=== PATIENT | female | born 1990 | race African-American/Black ===

== ENCOUNTER 2016-07-10 19:37 | Emergency (ER) | payer OTHER ==
[2016-07-10 19:42] VITALS: BMI 27.3
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
[2016-07-10] MEDS ORDERED: ELECTROLYTE-148 SOLN 500 ML IV ONE ×2 (19:50→20:50)
[2016-07-10 21:08] LABS: URINE APPEARANCE SLCLOUDY; URINE BILIRUBIN NEGATIVE (NEGATIVE); URINE BLOOD NEGATIVE (NEGATIVE); URINE COLOR LTYELLOW; URINE GLUCOSE (UA) NEGATIVE (NEGATIVE); URINE KETONE NEGATIVE (NEGATIVE); URINE NITRITE NEGATIVE (NEGATIVE); URINE PROTEIN NEGATIVE (NEGATIVE); URINE UROBILINOGEN NEGATIVE E.U./dl (0.2-1.0)
[2016-07-10 21:09] LABS: URINE LEUK ESTERASE 2+ (NEGATIVE)
[2016-07-10 21:15] LABS: URINE BACTERIA MODERATE /hpf (NONE SEEN); URINE HYALINE CAST 1 /lpf; URINE RBC 1 /hpf (0-3); URINE WBC 4 /hpf (3-5); YEAST RARE
[2016-07-10 21:27] VITALS: BP 98/63; PULSE 110; TEMP 98.5
== END 2016-07-11 00:25 | disposition home or self-care (01) ==
LOC: JER 19:37
DX: O26.893 Other specified pregnancy related conditions, third trimester (principal); R10.30 Lower abdominal pain, unspecified; Z3A.30 30 weeks gestation of pregnancy
CPT/HCPCS: 59025; 76815-TC; 76817-TC; 81003; 81015; 99281-25

== ENCOUNTER 2016-08-16 01:18 | Emergency (ER) | payer OTHER ==
[2016-08-16 01:54] VITALS: BP 112/64; PULSE 102; TEMP 98.2; BMI 27.3
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
== END 2016-08-16 03:47 | disposition home or self-care (01) ==
LOC: JER 01:18
DX: S61.451A Open bite of right hand, initial encounter (principal); Y04.1XXA Assault by human bite, initial encounter; Y93.89 Activity, other specified; Y92.038 Other place in apartment as the place of occurrence of the external cause; Y07.499 Other family member, perpetrator of maltreatment and neglect
CPT/HCPCS: 99282-25

== ENCOUNTER 2016-08-26 20:40 | Inpatient (IN) | payer OTHER ==
[2016-08-26] MEDS: ELECTROLYTE-148 SOLN 1,000 ML IV SCH (21:15)
--- NOTE | 2016-08-26 21:16 | HP ---
Admitting History and Physical - Admission Chief Complaint: srom History of Present Illness: 26 /o p3 comes with srom today, efrain q 2 mins History Source: Patient Limitations to Obtaining History: No Limitations - Past Medical History CARE CLINICIAN: No: Alzheimer's, CVA, Dementia, Migraine, Multiple Sclerosis, Peripheral Neuropathy, Parkinson's, Seizure, Syncope, TIA, Vertigo, Other Pulmonary: No: Asthma, Bronchitis, Cancer, COPD, O2 Dependent, Pneumonia, Previously Intubated, Pulmonary Embolus, Pulmonary Fibrosis, Sleep Apnea, Other Gastrointestinal: No: Ascites, Cancer, Constipation, Crohn's Disease, Diverticulitis, Diverticulosis, Esophageal Varices, Gastritis, GERD, GI Bleed, Hemorrhoids, Hiatal Hernia, Inflamatory Bowel Disease, Irritable Bowel Disease, Pancreatitis, Peptic Ulcer Disease, Ulcerative Colitis, Other Hepatobiliary: No: Cirrhosis, Cholelithiasis, Cholecystitis, Choledocholithiasis , Hepatitis A, Hepatitis B, Hepatitis C, Other Renal/: No: Renal Failure, Renal Inusuff, BPH, Cancer, Hematuria, Hemodialysis , Neurogenic Bladder, Renal Calculi, UTI, Other Reproductive: No: Ectopic , Endometriosis, Fibroids, PID, Polycystic Ovary Syndrome, Postmenopausal, Other ...LMP: 03/09/14 Heme/Onc: Yes: Anemia Infectious Disease: No: AIDS, C-Diff, Herpes Zoster, HIV, MRSA, STD's, Tuberculosis, VREF, Other Psych: No: Addictions, Anxiety, Bipolar, Depression, Panic, Psychosis, Schizophrenia, Other - Smoking History Smoking history: Never smoked Have you smoked in the past 12 months: No - Alcohol/Substance Use Hx Alcohol Use: No History of Substance Use: denies: None, Cocaine, Heroin, Marijuana, Prescription , Tranquilizers - Social History Usual Living Arrangement: No: Alone, With Spouse, With Parent, With Significant Other, With Child, Assisted Living, Care Home, Other Home Medications - Allergies Allergies/Adverse Reactions: Allergies Allergy/AdvReac Type Severity Reaction Status Date / Time No Known Allergies Allergy Verified 08/16/16 01:51 - Home Medications Home Medications: Ambulatory Orders Albuterol Sulfate Inhaler - [Ventolin Hfa Inhaler -] 1 - 2 inh PO QID 05/30/16 Ferrous Sulfate [Feosol] 325 mg PO DAILY 07/10/16 Nitrofurantoin Monohyd/M-Cryst [Macrobid -] 100 mg PO BID #14 capsule 07/10/16 Vitamins (Sjr) - 1 tab PO DAILY 07/10/16 Amoxicillin - [Amoxicillin 250mg Capsule -] 250 mg PO TID #21 capsule 08/16/16 Review of Systems - Review of Systems Constitutional: reports: No Symptoms Eyes: reports: No Symptoms HENT: reports: No Symptoms Neck: reports: No Symptoms Cardiovascular: reports: No Symptoms Respiratory: reports: No Symptoms Gastrointestinal: reports: No Symptoms Genitourinary: reports: No Symptoms Breasts: reports: No Symptoms Reported Musculoskeletal: reports: No Symptoms Integumentary: reports: No Symptoms Neurological: reports: No Symptoms Assessment/Plan as above continue care admit labs
--- NOTE | 2016-08-26 21:21 | PN ---
Progress Note (short form) - Note Progress Note: 2-3 cm/srom clear/ -2
[2016-08-26 22:14] LABS: BASOPHIL 0.8 % (0-2.0); EOSINOPHIL 0.9 % (0-4.5); MCHC 32.9 g/dl (32.0-36.0); MEAN CELL VOLUME 82.1 fl (80-96); MEAN PLT VOLUME 9.8 fl (7.5-11.1); NEUTROPHILS 57.7 % (42.8-82.8); PLATELET COUNT 120 K/MM3 (134-434); RDW 14.8 % (11.6-15.6); WHITE BLOOD COUNT 6.5 K/mm3 (4.0-10.0)
[2016-08-26 22:38] LABS: INR 0.99 (0.82-1.09); PROTHROMBIN TIME (PATIENT) 10.9 SEC (9.98-11.88)
[2016-08-26 22:40] LABS: ACTIVATED PTT 24.4 SECONDS (26.9-34.4)
[2016-08-26 22:41] LABS: CALCIUM 8.2 mg/dL (8.5-10.1); CREATININE 0.5 mg/dL (0.55-1.02)
[2016-08-26 22:52] VITALS: BMI 28.3
[2016-08-26 22:52] LABS: COCKROFT - GAULT 173.927
[2016-08-26] MEDS ORDERED: POTASSIUM CHLORIDE 20 MEQ PREMIX IVPB 100 ML IVPB ONE (22:56)
[2016-08-26] MEDS ORDERED: OXYTOCIN 15 UNITS/ LR 250 ML 250 ML IVPB SCH (23:00)
--- NOTE | 2016-08-26 23:08 | PN ---
Progress Note (short form) - Note Progress Note: doing well, contraction, exam 3 cm..will start pitocin pain meds prn
[2016-08-27] MEDS ORDERED: WITCH HAZEL 50% (TUCKS) 40 PAD/JAR PAD TP PRN (03:24)
[2016-08-27] MEDS ORDERED: BENZOCAINE 20% 57 GM BOTTLE TP PRN (03:24)
[2016-08-27] MEDS ORDERED: METHYLERGONOVINE MALEATE 0.2 MG/1 ML AMP IM PRN (03:24)
[2016-08-27] MEDS ORDERED: BENZOCAINE 28 GM HEMORRHOIDAL OINTMENT TP PRN (03:24)
[2016-08-27] MEDS ORDERED: BISACODYL 10 MG SUPP.RECT RC PRN (03:24)
--- NOTE | 2016-08-27 03:24 | PN ---
Delivery - Delivery Vaginal Delivery: No Problems Episiotomy/Laceration: None EBL (cc): 300 Delivery, Single - Feeding Plan Initial Plan: Elected not to breastfeed exclusively throughout hospitalization
[2016-08-27] MEDS: OXYTOCIN 20 UNITS in 0.9% NS 1,000 ML IV SCH ×2 (03:40→09:00)
[2016-08-27] MEDS ORDERED: BUTORPHANOL TARTRATE 1 MG/ML VIAL IVPUSH ONE (05:53)
[2016-08-27] MEDS: ACETAMINOPHEN 325 MG TABLET (FP) PO PRN ×2 (08:16→21:19)
[2016-08-27] MEDS: IBUPROFEN 600 MG TABLET (FP) PO PRN ×2 (08:17→21:18)
[2016-08-27 09:49] LABS: ALBUMIN 2.3 g/dl (3.4-5.0); ALK PHOS 207 U/L (45-117); ANION GAP 9 (8-16); BILIRUBIN,TOTAL 0.5 mg/dL (0.2-1.0); CALCIUM 8.4 mg/dL (8.5-10.1); CO2 29 mmol/L (21-32); COCKROFT - GAULT 144.9335; CREATININE 0.6 mg/dL (0.55-1.02); GLUCOSE,RANDOM 121 mg/dL (74-106); SGOT/AST 27 U/L (15-37); SGPT/ALT 13 U/L (12-78); TOT PROT 5.6 g/dl (6.4-8.2)
[2016-08-27] MEDS ORDERED: POTASSIUM CHLORIDE TABS 20 MEQ TABLET.ER (FP) PO ONE (11:30)
[2016-08-27] MEDS: ELECTROLYTE-148 SOLN 1,000 ML IV SCH (21:21)
[2016-08-28 08:39] LABS: BASOPHIL 0.8 % (0-2.0); EOSINOPHIL 1.3 % (0-4.5); MCH 27.3 pg (25.7-33.7); MCHC 33.6 g/dl (32.0-36.0); MEAN CELL VOLUME 81.4 fl (80-96); MEAN PLT VOLUME 8.8 fl (7.5-11.1); NEUTROPHILS 56.6 % (42.8-82.8); PLATELET COUNT 106 K/MM3 (134-434); WHITE BLOOD COUNT 8.6 K/mm3 (4.0-10.0)
[2016-08-28 09:10] LABS: CALCIUM 8.6 mg/dL (8.5-10.1); COCKROFT - GAULT 144.9335; CREATININE 0.6 mg/dL (0.55-1.02)
[2016-08-28] MEDS ORDERED: POTASSIUM CHLORIDE TABS 20 MEQ TABLET.ER (FP) PO ONE (11:00)
--- NOTE | 2016-08-28 15:06 | PN ---
Post Progress Note Post Day: 1 Type of Delivery: Vital Signs: Vital Signs Temperature 98.6 F 08/28/16 07:15 Pulse Rate 66 08/28/16 07:15 Respiratory Rate 20 08/28/16 07:15 Blood Pressure 117/74 08/28/16 07:15 O2 Sat by Pulse Oximetry (%) Breast Exam: Yes: Soft Uterus: Yes: Fundus Firm Abdomen/GI: Yes: Abdomen soft Lochia: Yes: Rubra Lochia, amount: Small Extremities: Yes: Calves non-tender Perineum: Yes: Intact Activity: Ambulating - Labs Labs: CBC WBC 8.6 K/mm3 (4.0-10.0) D 08/28/16 08:00 RBC 3.59 M/mm3 (3.60-5.2) L 08/28/16 08:00 Hgb 9.8 GM/dL (10.7-15.3) L 08/28/16 08:00 Hct 29.2 % (32.4-45.2) L 08/28/16 08:00 MCV 81.4 fl (80-96) 08/28/16 08:00 MCHC 33.6 g/dl (32.0-36.0) 08/28/16 08:00 RDW 15.0 % (11.6-15.6) 08/28/16 08:00 Plt Count 106 K/MM3 (134-434) L 08/28/16 08:00 MPV 8.8 fl (7.5-11.1) D 08/28/16 08:00 Neutrophils % 56.6 % (42.8-82.8) 08/28/16 08:00 Lymphocytes % 32.1 % (8-40) 08/28/16 08:00 Monocytes % 9.2 % (3.8-10.2) 08/28/16 08:00 Eosinophils % 1.3 % (0-4.5) 08/28/16 08:00 Basophils % 0.8 % (0-2.0) 08/28/16 08:00 Assessment/Plan as above labs k dur replacement
[2016-08-28] MEDS ORDERED: SENNOSIDES/DOCUSATE COMBO (SENNA PLUS) TABLET (UD) PO PRN (22:00)
--- NOTE | 2016-08-29 04:28 | PN ---
Post Progress Note Post Day: 2 Type of Delivery: Vital Signs: Vital Signs Temperature 98.7 F 08/28/16 21:44 Pulse Rate 79 08/28/16 21:44 Respiratory Rate 20 08/28/16 21:44 Blood Pressure 122/79 08/28/16 21:44 O2 Sat by Pulse Oximetry (%) Breast Exam: Yes: Soft Uterus: Yes: Fundus Firm Abdomen/GI: Yes: Abdomen soft Lochia: Yes: Rubra Lochia, amount: Small Perineum: Yes: Intact Activity: Ambulating - Labs Labs: CBC WBC 8.6 K/mm3 (4.0-10.0) D 08/28/16 08:00 RBC 3.59 M/mm3 (3.60-5.2) L 08/28/16 08:00 Hgb 9.8 GM/dL (10.7-15.3) L 08/28/16 08:00 Hct 29.2 % (32.4-45.2) L 08/28/16 08:00 MCV 81.4 fl (80-96) 08/28/16 08:00 MCHC 33.6 g/dl (32.0-36.0) 08/28/16 08:00 RDW 15.0 % (11.6-15.6) 08/28/16 08:00 Plt Count 106 K/MM3 (134-434) L 08/28/16 08:00 MPV 8.8 fl (7.5-11.1) D 08/28/16 08:00 Neutrophils % 56.6 % (42.8-82.8) 08/28/16 08:00 Lymphocytes % 32.1 % (8-40) 08/28/16 08:00 Monocytes % 9.2 % (3.8-10.2) 08/28/16 08:00 Eosinophils % 1.3 % (0-4.5) 08/28/16 08:00 Basophils % 0.8 % (0-2.0) 08/28/16 08:00 Assessment/Plan oob dc home
[2016-08-29 12:10] LABS: ALBUMIN 2.1 g/dl (3.4-5.0); ALK PHOS 152 U/L (45-117); ANION GAP 7 (8-16); BILIRUBIN,TOTAL 0.3 mg/dL (0.2-1.0); CALCIUM 8.4 mg/dL (8.5-10.1); CO2 30 mmol/L (21-32); COCKROFT - GAULT 144.9335; CREATININE 0.6 mg/dL (0.55-1.02); GLUCOSE,RANDOM 76 mg/dL (74-106); SGPT/ALT 16 U/L (12-78); TOT PROT 5.2 g/dl (6.4-8.2)
[2016-08-29 12:15] LABS: SGOT/AST 36 U/L (15-37)
[2016-08-29] MEDS: IBUPROFEN 600 MG TABLET (FP) PO PRN (12:48)
[2016-08-29] MEDS: ACETAMINOPHEN 325 MG TABLET (FP) PO PRN (12:49)
[2016-08-29 17:43] VITALS: BP 106/71; PULSE 85; TEMP 98.8
== END 2016-08-29 17:00 | disposition home or self-care (01) | DRG 560 ==
LOC: JLDR 20:40 → J3W 08-27 05:53
PROVIDERS: ADMIT Obstetrics & Gynecology; ATTEND Obstetrics & Gynecology
PROC: 10E0XZZ Delivery of Products of Conception, External Approach (ICD-10-PCS; principal; 2016-08-27)
DX: O99.02 Anemia complicating childbirth (principal); D64.9 Anemia, unspecified; Z3A.37 37 weeks gestation of pregnancy; Z37.0 Single live birth
CPT/HCPCS: 36415; 59409; 80048; 80053; 85025; 85610; 85730; 86593; 86850; 86900; 86901

== ENCOUNTER 2018-09-23 19:02 | Emergency (ER) | payer OTHER ==
[2018-09-23 19:11] VITALS: BP 127/93; PULSE 97; TEMP 98; BMI 28.3
[2018-09-23] MEDS ORDERED: IBUPROFEN 600 MG TABLET (FP) PO ONE ×2 (19:31→19:39)
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
== END 2018-09-23 20:03 | disposition home or self-care (01) ==
LOC: JERFT 19:02 → JER 19:02 → JERFT 20:03
DX: M79.632 Pain in left forearm (principal); V48.0XXA Car driver injured in noncollision transport accident in nontraffic accident, initial encounter; Y92.488 Other paved roadways as the place of occurrence of the external cause; Y93.89 Activity, other specified; Y99.8 Other external cause status
CPT/HCPCS: 73070-TC-LT-FY; 73090-TC-LT-FY; 99282-25

== ENCOUNTER 2019-10-29 21:58 | Emergency (ER) | payer OTHER ==
--- NOTE | 2019-10-29 22:11 | PDOC ---
Rapid Medical Evaluation Chief Complaint: Ear Problem Time Seen by Provider: 10/29/19 22:09 Medical Evaluation: Allergies Allergy/AdvReac Type Severity Reaction Status Date / Time No Known Allergies Allergy Verified 09/23/18 19:08 10/29/19 22:09 29 year old female c/o right ear pain since last night. denies fever/ chills. PMHX; asthma Pe: patient alert ox3. A: right ear pain P: patient to the ER for further management of care Discharge Disposition - Diagnosis Right ear pain - Referrals - Patient Instructions - Post Discharge Activity
[2019-10-29 22:14] VITALS: BP 127/86; PULSE 88; TEMP 98.1; BMI 31.2
[2019-10-29] MEDS ORDERED: IBUPROFEN 600 MG TABLET (FP) PO ONE ×3 (22:17→22:23)
--- NOTE | 2019-10-29 22:21 | PDOC ---
History of Present Illness - General Chief Complaint: Ear Problem Stated Complaint: RT EAR INFECTION Time Seen by Provider: 10/29/19 22:09 History Source: Patient Exam Limitations: No Limitations - History of Present Illness Initial Comments: 10/29/19 22:19 HISTORY OF PRESENT ILLNESS: 29-year-old woman denies medical history presents emergency department for evaluation of right ear pain for 2 days. Patient reports a "clogged" sensation in her right ear which is worsened over 2 days. Patient is tried homeopathic remedies such as warm compresses to her ear with minimal relief. She denies any fevers or chills. She denies discharge or drainage from her ears. Patient reports using ear buds and has the volume on at high levels for extended periods of time. No recent travel or sick contacts. PAST MEDICAL HISTORY: Denies past medical history SURGICAL HISTORY: Denies ALLERGIES: No known drug allergies REVIEW OF SYSTEMS General/Constitutional: Denies fever or chills. Denies weakness, weight change. HEENT: See HPI Cardiovascular: Denies chest pain or shortness of breath. Respiratory: Denies cough, wheezing, or hemoptysis. Gastrointestinal: Denies nausea, vomiting, diarrhea or constipation. Denies rectal bleeding. Genitourinary: Denies dysuria, frequency, or change in urination. Musculoskeletal: Denies joint or muscle swelling or pain. Denies neck or back pain. Skin and breasts: Denies rash or easy bruising. Neurologic: Denies headache, vertigo, loss of consciousness, or loss of sensation. Psychiatric: Denies depression or anxiety. Endocrine: Denies increased thirst. Denies abnormal weight change. Hematologic/Lymphatic: Denies anemia, easy bleeding, or history of blood clots. Allergic/Immunologic: Denies hives or skin allergy. Denies latex allergy. PHYSICAL EXAM General Appearance: Well-appearing, appropriately dressed. No apparent distress, no intoxication. HEENT: EOMI, PERRLA, normal voice, TMs normal, pharynx normal. No conjunctival pallor. No mastoid tenderness present bilaterally. Right tragal tenderness upon light palpation. Increased pain with minimal traction on the pinna of the right ear. Right external auditory canal is erythematous with thick white discharge present. Neck: Supple. Trachea midline. No tenderness, rigidity, carotid bruit, stridor, lymphadenopathy, or thyromegaly. Neurologic: insecticide sprayer II-XII intact. Fully oriented, alert. Appropriate mood/affect. Motor strength 5/5. No appreciable EOM palsy, facial droop or sensory deficit. Past History - Medical History Allergies/Adverse Reactions: Allergies Allergy/AdvReac Type Severity Reaction Status Date / Time No Known Allergies Allergy Verified 09/23/18 19:08 Home Medications: Ambulatory Orders Ibuprofen 600 mg PO Q6H #30 tablet 09/23/18 Neomycin/Polymyxn/Hc [Cortisporin Otic Suspenstion -] 5 drop AD Q4HWA #1 bottle 10/29/19 Asthma: Yes Cancer: No Cardiac Disorders: No COPD: No Diabetes: Yes HTN: No Seizures: No Thyroid Disease: No - Reproductive History (#): 2 Para: 1 Cervical CA: No Dysfunctional Uterine Bleeding: No Ectopic : No Endometrial CA: No Polycystic Ovaries: No Therapeutic (s) & number: No Tubal Ligation: No - Psycho-Social/Smoking History Smoking History: Never smoked Have you smoked in the past 12 months: No - Substance Abuse Hx (Audit-C & DAST Scrn) How often the patient has a drink containing alcohol: Never Score: In Men: 4 or > Positive; In Women: 3 or > Positive: 0 Screen Result (Pos requires Nsg. Audit-10AR): Negative *Physical Exam - Vital Signs Last Vital Signs Temp Pulse Resp BP Pulse Ox 98.1 F 88 20 127/86 100 10/29/19 22:08 10/29/19 22:08 10/29/19 22:08 10/29/19 22:08 10/29/19 22:08 Medical Decision Making - Medical Decision Making 10/29/19 22:18 A/P: 29-year-old woman with atraumatic right ear pain for 2 days External auditory canal erythematous with thick white drainage present. Left external auditory canals unremarkable TMs within normal limits bilaterally As patient has an otitis externa will discharge the patient home with Cortisporin eardrops 5 drops to be taken every 4 hours while awake Motrin 600 mg orally now Discharge home Discharge - Discharge Information Problems reviewed: Yes Clinical Impression/Diagnosis: Otitis externa Qualifiers: Otitis externa type: unspecified type Chronicity: acute Laterality: right Qualified Code(s): H60.501 - Unspecified acute noninfective otitis externa, right ear Condition: Stable Disposition: HOME - Admission No - Additional Discharge Information Prescriptions: Neomycin/Polymyxn/Hc [Cortisporin Otic Suspenstion -] 5 drop AD Q4HWA #1 bottle - Follow up/Referral - Patient Discharge Instructions Additional Instructions: Rest, lots of fluids; water, teas, soups Hot wet soaks to ear/hot packs may help relieve some pain May use [id number] anesthetic drops to ears to help relieve some pain Avoid getting water in ear, may use alcohol drops to help dry up any water retained in ears Severe using earplugs when swimming to avoid any water retention Continue ibuprofen or Tylenol for pain and fevers Cortisporin otic solution 3-5 drops 3 times a day for 5 days followup with private physician / ENT doctor in 2-3 days Return to emergency department or see private physician immediately for swelling, redness, from ears, or fevers, - Post Discharge Activity
== END 2019-10-29 22:28 | disposition home or self-care (01) ==
LOC: JER 21:58
DX: H60.501 Unspecified acute noninfective otitis externa, right ear (principal)
CPT/HCPCS: 99283-25

== ENCOUNTER 2019-11-22 00:16 | Emergency (ER) | payer OTHER ==
[2019-11-22 00:49] VITALS: BP 119/88; PULSE 91; TEMP 98.5; BMI 31.8
--- NOTE | 2019-11-22 01:08 | PDOC ---
History of Present Illness - General Chief Complaint: Shortness of Breath Stated Complaint: SOB Time Seen by Provider: 11/22/19 00:44 - History of Present Illness Initial Comments: 11/22/19 01:02 Ms. Paz is a 29yo F with a history of asthma presenting with SOB and chest tightness, since resolved. She stated she was at home and began to feel SOB and chest tightness. She ran out of her albuterol inhaler, and she is missing the mask piece for her home nebulizer. She came to the hospital for treatment, but after getting from fresh She states she gets symptoms around once per month in the spring and summer, and that this feels like her asthma. Denies chest pain, cough, congestion, sick contacts, recent travel. PMH/PSH: as above Meds: albuterol Allergies: none ROS GENERAL/CONSTITUTIONAL: No fever or chills. No weakness. HEAD, EYES, EARS, NOSE AND THROAT: No change in vision. No ear pain or discharge. No sore throat. CARDIOVASCULAR: No chest pain or shortness of breath RESPIRATORY: No cough, wheezing, or hemoptysis. GASTROINTESTINAL: No nausea, vomiting, diarrhea or constipation. GENITOURINARY: No dysuria, frequency, or change in urination. MUSCULOSKELETAL: No joint or muscle swelling or pain. No neck or back pain. SKIN: No rash NEUROLOGIC: No headache, vertigo, loss of consciousness, or change in strength/sensation. ENDOCRINE: No increased thirst. No abnormal weight change HEMATOLOGIC/LYMPHATIC: No anemia, easy bleeding, or history of blood clots. ALLERGIC/IMMUNOLOGIC: No hives or skin allergy. PE GENERAL: Awake, alert, and fully oriented, in no acute distress HEAD: No signs of trauma, normocephalic, atraumatic EYES: PERRLA, EOMI, sclera anicteric, conjunctiva clear ENT: Auricles normal inspection, hearing grossly normal, nares patent, oropharynx clear without exudates. Moist mucosa NECK: Normal ROM, supple, no lymphadenopathy, JVD, or masses LUNGS: No distress, speaks full sentences, clear to auscultation bilaterally. No wheezing HEART: Regular rate and rhythm, normal S1 and S2, no murmurs, rubs or gallops, peripheral pulses normal and equal bilaterally. ABDOMEN: Soft, nontender, normoactive bowel sounds. No guarding, no rebound. No masses EXTREMITIES : Normal inspection, Normal range of motion, no edema. No clubbing or cyanosis. NEUROLOGICAL: Cranial nerves II through XII grossly intact. Normal speech, normal gait, no focal sensorimotor deficits SKIN: Warm, Dry, normal turgor, no rashes or lesions noted Vital Signs Temp Pulse Resp BP Pulse Ox 98.5 F 91 H 20 119/88 97 11/22/19 00:46 11/22/19 00:46 11/22/19 00:46 11/22/19 00:46 11/22/19 00:46 MDM: Ms. Paz is a 29yo F with a history of asthma presenting with SOB and chest tightness, since resolved. Vitals wnl, lungs CTAB, no wheezing on exam. She may have experienced asthma symptoms. Differential also includes panic attack. -DC home with albuterol inhaler prescription and PCP follow up 11/22/19 01:45 Ambulates without symptoms or desaturation. DC home as per plan above Past History - Medical History Allergies/Adverse Reactions: Allergies Allergy/AdvReac Type Severity Reaction Status Date / Time No Known Allergies Allergy Verified 11/22/19 00:45 Home Medications: Ambulatory Orders Ibuprofen 600 mg PO Q6H #30 tablet 09/23/18 Neomycin/Polymyxn/Hc [Cortisporin Otic Suspenstion -] 5 drop AD Q4HWA #1 bottle 10/29/19 Albuterol Sulfate Inhaler - [Ventolin HFA Inhaler -] 2 inh PO Q6H #1 inh 11/22/19 Asthma: Yes Cancer: No Cardiac Disorders: No COPD: No Diabetes: Yes HTN: No Seizures: No Thyroid Disease: No - Reproductive History Is Patient Now?: No (#): 2 Para: 1 Cervical CA: No Dysfunctional Uterine Bleeding: No Ectopic : No Endometrial CA: No Polycystic Ovaries: No Therapeutic (s) & number: No Tubal Ligation: No - Psycho-Social/Smoking History Smoking History: Never smoked Have you smoked in the past 12 months: No Information on smoking cessation initiated: No - Substance Abuse Hx (Audit-C & DAST Scrn) How often the patient has a drink containing alcohol: Never Score: In Men: 4 or > Positive; In Women: 3 or > Positive: 0 Screen Result (Pos requires Nsg. Audit-10AR): Negative In the last yr the pt used illegal drug/Rx for NonMed reason: No Score: Yes response is considered Positive: 0 Screen Result (Positive result requires Nsg. DAST-10): Negative *Physical Exam - Vital Signs Last Vital Signs Temp Pulse Resp BP Pulse Ox 98.5 F 91 H 20 119/88 97 11/22/19 00:46 11/22/19 00:46 11/22/19 00:46 11/22/19 00:46 11/22/19 00:46 Discharge - Discharge Information Problems reviewed: Yes Clinical Impression/Diagnosis: Shortness of breath - Additional Discharge Information Prescriptions: Albuterol Sulfate Inhaler - [Ventolin HFA Inhaler -] 2 inh PO Q6H #1 inh - Follow up/Referral Referrals: Ekta Bowen MD [Primary Care Provider] - - Patient Discharge Instructions Patient Printed Discharge Instructions: DI for Asthma -- Adult Additional Instructions: You were seen in the ER for shortness of breath and chest tightness. These symp toms had resolved by the time you came to the ER. We did a physical examination, and your lungs sounded normal without any wheezing. You may have experienced asthma symptoms earlier. We gave you a mask piece for your home nebulizer. We also sent an albuterol inhaler prescription to your pharmacy. You should follow up with your primary care doctor withing the next three days for these symptoms. Please return to the ER if you experience continued or worsening symptoms, fever, chills, chest pain, or any other reason. - Post Discharge Activity
--- NOTE | 2019-11-22 02:20 | PDOC ---
Attending Attestation - Resident Resident Name: Hernesto Cornejo - ED Attending Attestation I have performed the following: I have examined & evaluated the patient, The case was reviewed & discussed with the resident, I agree w/resident's findings & plan, Exceptions are as noted - HPI HPI: 11/22/19 02:18 See resident HPI - Physicial Exam PE: 11/22/19 02:18 Agree with documented exam - Medical Decision Making 11/22/19 02:18 29 hx of asthma feeling sob but did not have appropriate supplies at home to self treat. Symptoms resolved prior to intervention in ED Exam w/o pathologic findings Speaking in full sentences, normal wob No hypoxia with ambulation dc home with rx to pharmacy of choice with appropriate refills and equipment Discharge - Discharge Information Problems reviewed: Yes Clinical Impression/Diagnosis: Shortness of breath Condition: Stable Disposition: HOME - Additional Discharge Information Prescriptions: Albuterol Sulfate Inhaler - [Ventolin HFA Inhaler -] 2 inh PO Q6H #1 inh - Follow up/Referral Referrals: Ekta Bowen MD [Primary Care Provider] - - Patient Discharge Instructions Patient Printed Discharge Instructions: DI for Asthma -- Adult Additional Instructions: You were seen in the ER for shortness of breath and chest tightness. These symptoms had resolved by the time you came to the ER. We did a physical examination, and your lungs sounded normal without any wheezing. You may have experienced asthma symptoms earlier. We gave you a mask piece for your home nebulizer. We also sent an albuterol inhaler prescription to your pharmacy. You should follow up with your primary care doctor withing the next three days for these symptoms. Please return to the ER if you experience continued or worsening symptoms, fever, chills, chest pain, or any other reason. - Post Discharge Activity
== END 2019-11-22 01:51 | disposition home or self-care (01) ==
LOC: JER 00:16
DX: R06.02 Shortness of breath (principal)
CPT/HCPCS: 99283-25

== ENCOUNTER 2021-04-24 16:09 | Emergency (ER) | payer OTHER ==
[2021-04-24 16:15] VITALS: BP 114/82; PULSE 92; TEMP 98.8; BMI 31.1
[2021-04-24] MEDS ORDERED: ACETAMINOPHEN 500 MG TABLET (FP) PO ONE (17:10)
[2021-04-24] MEDS ORDERED: IBUPROFEN 600 MG TABLET (FP) PO ONE ×2 (17:10→17:20)
[2021-04-24] MEDS ORDERED: ACETAMINOPHEN 325 MG TABLET (FP) ONE (17:20)
[2021-04-24] MEDS ORDERED: IBUPROFEN 400 MG TABLET (FP) PO ONE (17:23)
[2021-04-24] MEDS ORDERED: ACETAMINOPHEN 500 MG TABLET (FP) ONE (17:23)
== END 2021-04-24 17:32 | disposition home or self-care (01) ==
LOC: JER 16:09
DX: U07.1 COVID-19 (principal)
CPT/HCPCS: 99283-25; C9803; U0003; U0005

== ENCOUNTER 2021-09-23 20:55 | Emergency (ER) | payer OTHER ==
[2021-09-23] MEDS ORDERED: IBUPROFEN 600 MG TABLET (FP) PO ONE ×2 (21:10→21:12)
[2021-09-23 21:16] VITALS: BP 118/87; PULSE 90; TEMP 99.4; BMI 27.3
== END 2021-09-23 22:02 | disposition home or self-care (01) ==
LOC: FER 20:55
DX: S93.401A Sprain of unspecified ligament of right ankle, initial encounter (principal); X50.9XXA Other and unspecified overexertion or strenuous movements or postures, initial encounter
CPT/HCPCS: 73610-TC-RT-FY; 99283-25

== ENCOUNTER 2022-06-28 20:11 | Emergency (ER) | payer OTHER ==
[2022-06-28 20:31] VITALS: BP 126/90; PULSE 93; RESP 16; TEMP 98; BMI 29.2
[2022-06-28] MEDS ORDERED: AMOX TR/POT CLAV 875MG/125MG TABLETS (FP) PO ONE (20:51)
[2022-06-28] MEDS ORDERED: AMOX TR/POT CLAV 875MG/125MG TABLETS (FP) ONE (21:00)
== END 2022-06-28 21:03 | disposition home or self-care (01) ==
LOC: FER 20:11
DX: H60.01 Abscess of right external ear (principal)
CPT/HCPCS: 81025; 99283-25

== ENCOUNTER 2023-03-21 09:35 | Emergency (ER) | payer OTHER ==
[2023-03-21] MEDS ORDERED: ALBUTEROL SO4 2.5/IPRATROPIUM 0.5 INH SOL 3 ML VIAL.NEB. NEB ONE ×2 (09:58→10:19)
[2023-03-21 10:02] VITALS: BP 116/81; PULSE 54; RESP 18; TEMP 97.9; BMI 26.2
[2023-03-21 10:39] LABS: HEMATOCRIT 38.7 % (32.4-45.2); HEMOGLOBIN 12.8 G/dL (10.7-15.3); MCH 28.8 pg (25.7-33.7); MCHC 33.1 g/dl (32.0-36.0); MEAN PLT VOLUME 10.5 fl (7.5-11.1); RBC 4.45 10^6/uL (3.60-5.2); RDW 14.4 % (11.6-15.6); WHITE BLOOD COUNT 4.1 10^3/uL (4.0-10.8)
[2023-03-21 10:46] LABS: ALBUMIN 4.3 g/dl (3.4-5.0); ALK PHOS 61 U/L (45-117); ANION GAP 7 mmol/L (4-13); BILIRUBIN,TOTAL 0.5 mg/dl (0.2-1); CALCIUM 9.4 mg/dl (8.5-10.1); CHLORIDE 102 mmol/L (98-107); CO2 30 mmol/L (21-32); CREATININE 0.7 mg/dl (0.6-1.3); GLUCOSE,RANDOM 110 mg/dl (74-106); POTASSIUM 3.9 mmol/L (3.5-5.1); SGOT/AST 17 U/L (15-37); SGPT/ALT 15 U/L (7-52); SODIUM 139 mmol/L (136-145); TOT PROT 6.7 g/dl (6.4-8.2)
[2023-03-21 12:31] LABS: PLATELET ESTIMATE ADEQUATE
== END 2023-03-21 12:27 | disposition home or self-care (01) ==
LOC: FER 09:35
PROC: 3E0F7GC Introduction of Other Therapeutic Substance into Respiratory Tract, Via Natural or Artificial Opening (ICD-10-PCS; principal; 2023-03-21)
DX: R07.89 Other chest pain (principal); J45.20 Mild intermittent asthma, uncomplicated
CPT/HCPCS: 36415; 71046-TC-FY; 80053; 84484; 84703; 85027; 93005; 99285-25

== ENCOUNTER 2023-09-01 10:52 | Emergency (ER) | payer OTHER ==
[2023-09-01 10:58] VITALS: BP 115/77; PULSE 85; RESP 18; TEMP 98.7; BMI 31.2
[2023-09-01] MEDS ORDERED: KETOROLAC TROMETHAMINE 30 MG/1 ML VIAL ONE (12:04)
[2023-09-01] MEDS: KETOROLAC TROMETHAMINE 30 MG/1 ML VIAL IM ONE (12:14)
== END 2023-09-01 12:40 | disposition home or self-care (01) ==
LOC: JER 10:52
PROC: 3E0133Z Introduction of Anti-inflammatory into Subcutaneous Tissue, Percutaneous Approach (ICD-10-PCS; principal; 2023-09-01)
DX: L05.91 Pilonidal cyst without abscess (principal)
CPT/HCPCS: 99284-25

== ENCOUNTER 2024-06-25 12:14 | Emergency (ER) | payer SELFPAY ==
[2024-06-25 12:41] VITALS: BP 127/87; PULSE 78; RESP 18; TEMP 98.6; BMI 26.9
== END 2024-06-25 13:34 | disposition home or self-care (01) ==
LOC: JERFT 12:14
DX: M25.531 Pain in right wrist (principal); M25.532 Pain in left wrist
CPT/HCPCS: 99283-25; 99284-25